=== PATIENT | female | born 1995 | race Caucasian/White ===

== ENCOUNTER 2017-07-12 15:24 | Emergency (ER) | payer OTHER ==
[2017-07-12 15:34] VITALS: BP 149/86; PULSE 73; RESP 16; TEMP 98.7; O2SAT 98
[2017-07-12] MEDS ORDERED: BIRTH CONTROL PO (17:37)
[2017-07-12] MEDS ORDERED: ACCUTANE PO (17:37)
[2017-07-12] MEDS ORDERED: HYDR2.5%T RECTAL (18:09)
[2017-07-12] MEDS ORDERED: HYDR-3516 PO (18:09)
--- NOTE | 2017-07-12 18:09 | PD ---
HPI Chief Complaint: Pain: Acute or Chronic Time Seen by Provider: 17:58 Travel History International Travel<30 days: No Contact w/Intl Traveler<30days: No Traveled to known affect area: No History of Present Illness HPI 22-year-old female here for evaluation of painful external hemorrhoids. Patient reports the pain started 2 days ago. She has tried Preparation H without any improvement in pain. She denies rectal bleeding. She has had hemorrhoids in the past. She denies rectal foreign body insertion. She is here on vacation from [place] and is returning back there tomorrow. No abdominal pain or vomiting. No other symptoms. PFSH Past Medical History Medical History: Denies Significant Hx Diminished Hearing: No Tetanus Vaccination: > 5 Years Influenza Vaccination: Yes ?: Not LMP: 07/04/2017 : 0 Para: 0 Past Surgical History Surgical History: No Previous Surgery Social History Alcohol Use: No Tobacco Use: No Substance Use: No Allergies-Medications (Allergen,Severity, Reaction): Coded Allergies: No Known Allergies (Unverified , 07/12/17) Reported Meds & Prescriptions Reported Meds & Active Scripts Active Reported [Accutane] 1 Tab PO DAILY [ Control ] 1 Tab PO DAILY Review of Systems Except as stated in HPI: all other systems reviewed are Neg Physical Exam Narrative GENERAL: Well-developed, well-nourished, comfortable, no apparent distress. SKIN: Focused skin assessment warm/dry. HEAD: Atraumatic. Normocephalic. EYES: Pupils equal and round. No scleral icterus. No injection or drainage. ENT: Mucous membranes pink and moist. CARDIOVASCULAR: Regular rate and rhythm. RESPIRATORY: No accessory muscle use. GASTROINTESTINAL: Abdomen soft, non-tender, nondistended. RECTUM: Exam performed in the presence of female nurse. 2 moderate sized external hemorrhoids that are not thrombosed, no fissures, no bleeding. MUSCULOSKELETAL: No obvious deformities. No clubbing. No cyanosis. No edema. NEUROLOGICAL: Awake and alert. No obvious cranial nerve deficits. Motor grossly within normal limits. Normal speech. PSYCHIATRIC: Appropriate mood and affect; insight and judgment normal. Data Data Last Documented VS Vital Signs Date Time Temp Pulse Resp B/P (MAP) Pulse Ox O2 Delivery O2 Flow Rate FiO2 07/12/17 15:34 98.7 73 16 149/86 (107) 98 Orders Orders Hydrocortisone Supp (Hemorrhoidal Hc Sup (07/12/17 18:15) Acetamin-Hydrocod 325-5 Mg ([place] 5-325 (07/12/17 18:15) MDM Medical Decision Making Medical Screen Exam Complete: Yes Emergency Medical Condition: Yes Differential Diagnosis External hemorrhoid Narrative Course This is a 22-year-old female who is here for evaluation of hemorrhoids. The patient is to moderate-sized external hemorrhoids that are not thrombosed. No rectal bleeding. She has tried Preparation H without any improvement. I will start her on Anusol suppositories and will provide her Lortab. She was advised to keep her stool soft with [id number] stool softeners such as MiraLAX or Metamucil. She is returning back to [place] tomorrow and was advised to follow -up with her primary care physician when she returns home. Sitz bath endorsed as well as sitting on a doughnut-type pillow. She was advised when to return to the emergency department. She verbalizes understanding and agreement with plan. Diagnosis Primary Impression: External hemorrhoid Referrals: Primary Care Physician 3 days Additional Instructions: Follow-up with your primary care physician this week. Perform sitz baths. Return to the emergency department for worsening symptoms or any other concerns. Scripts Hydrocodone-Acetaminophen (Hydrocodone-Acetaminophen) 5-325 mg Tab 1 TAB PO Q6H Y for PAIN, #10 TAB 0 Refills Prov: Alirio Jara MD 07/12/17 Hydrocortisone Rectal (Anusol-Hc Rectal) 2.5% Cream 1 APPLIC RECTAL Q6H Y for ITCHING/INFLAMMATION, #30 GM 0 Refills Prov: Alirio Jara MD 07/12/17 Disposition: 01 DISCHARGE HOME Condition: Stable Alirio Jara MD Jul 12, 2017 18:09
[2017-07-12] MEDS ORDERED: ACETAMINOPHEN/HYDROcodone 325 MG/5 MG TAB PO ONE (18:15)
[2017-07-12] MEDS ORDERED: HYDROCORTISONE ACETATE 25 MG SUPP RECTAL SCH (18:15)
== END 2017-07-12 19:12 | disposition home or self-care (01) ==
LOC: NEPD 15:24
DX: K64.4 Residual hemorrhoidal skin tags (principal)
CPT/HCPCS: 99283